=== PATIENT | female | born 1950 | race Two or more races ===

== ENCOUNTER 2016-06-06 19:01 | Emergency (ER) | payer MEDICAID ==
[~2016-06-06] VITALS: Ht 167.6 cm; Wt 77.1 kg
[2016-06-06 23:11] VITALS: BP 151/86
== END 2016-06-06 23:11 | disposition home or self-care (01) ==
LOC: ED 19:01
DX: M75.32 Calcific tendinitis of left shoulder (principal); J45.909 Unspecified asthma, uncomplicated
CPT/HCPCS: J1885; J3010